=== PATIENT | male | born 1995 | race Caucasian/White ===

== ENCOUNTER 2019-02-09 19:50 | Emergency (ER) | payer OTHER ==
[2019-02-09] MEDS ORDERED: Lidocaine 2% 20 ML MDV INFILT ONE (19:51)
[2019-02-09] MEDS ORDERED: Diphtheria,Pertussis(Acell),Tetanus Vaccine 0.5 ML SDV IM ONE (20:25)
--- NOTE | 2019-02-09 20:26 | EDM.PDOC ---
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 There was no other injury. He reports this occurred approximate 7:30 PM. There is some sore pain in the area that he rates as a 4/10. The pain is somewhat worse with palpation. Better when at rest. The bleeding is been controlled with direct pressure. He has full sensation in his fingers. He has full function in his left hand. There are no other associated signs or symptoms. There are no other modifying factors. 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 ED ROS GENERAL - Review of Systems Review Of Systems: See Below Constitutional: Reports: No Symptoms HEENT: Reports: No Symptoms Respiratory: Reports: No Symptoms Cardiovascular: Reports: No Symptoms GI/Abdominal: Reports: No Symptoms : Reports: No Symptoms Musculoskeletal: Reports: Other ([id number]. Mild soreness in the left volar wrist) Skin: Reports: Other (Laceration of the left volar wrist) Neurological: Reports: No Symptoms Hematologic/Lymphatic: Reports: No Symptoms Immunologic: Reports: Other (Last tetanus immunization was more than 5 years ago. Therefore, he was given a TD Immunization today to bring his tetanus immunization status up-to-date.) ED EXAM, SKIN/RASH Exam: See Below Exam Limited By: No Limitations General Appearance: Alert, WD/WN, Mild Distress Eye Exam: Bilateral Eye: EOMI, Normal Inspection Ears: Normal External Exam Nose: Normal Inspection, Normal Mucosa, No Blood Throat/Mouth: Normal Inspection, Normal Oropharynx, Normal Voice, No Airway Compromise Head: Atraumatic, Normocephalic Neck: Normal Inspection, Supple, Non-Tender, Full Range of Motion Respiratory/Chest: No Respiratory Distress, Lungs Clear, Normal Breath Sounds, No Accessory Muscle Use, Chest Non-Tender Cardiovascular: Normal Peripheral Pulses, Regular Rate, Rhythm, No JVD Peripheral Pulses: 2+: Radial (L), Radial (R) GI/Abdominal: Normal Bowel Sounds, Soft, Non-Tender, No Mass Back Exam: Normal Inspection, Vertebral Tenderness Extremities: Normal Range of Motion, Normal Capillary Refill Neurological: Alert, Oriented, CN II-XII Intact, No Motor/Sensory Deficits Skin: Warm, Dry, No Rash, Wound/Incision (to left volar wrist that is 3 cm in length.) Location, Skin: Upper Extremity, Left (Left volar wrist) Characteristics: Linear (Laceration) ED SKIN PROCEDURES - Laceration/Wound Repair Left Anterior Wrist Lac/Wound length In cm: 3 Appearance: Subcutaneous, Mildly Contaminated Distal NVT: Neuro & Vascular Intact Anesthetic Type: Local Local Anesthesia - Lidocaine (Xylocaine): 2% Plain Local Anesthetic Volume: 3cc (Can and sensation of complications) Saline Irrigation (cc's): 500 Exploration/Debridement/Repair: Wound Explored, No Foreign Material Found Closed with: Sutures Suture Size: 4-0 # of Sutures: 3 Suture Type: Nylon Sterile Dressing Applied: Nurse Tetanus Status Addressed: Yes Complications: No Progress/Comments: Patient tolerated the procedure well with no apparent complications. Course - Vital Signs Last Recorded V/S: Last Vital Signs Temp 36.7 C 02/09/19 20:00 Pulse 71 02/09/19 20:00 Resp 18 02/09/19 20:00 BP 157/75 H 02/09/19 20:00 Pulse Ox 99 02/09/19 20:00 - Orders/Labs/Meds Orders: Active Orders 24 hr Category Date Time Status Vaccines to be Administered [RC] PER UNIT ROUTINE Care 02/09/19 20:26 Active Meds: Medications Discontinued Medications Generic Name Dose Route Start Last Admin Trade Name Patty PRN Reason Stop Dose Admin Diphtheria/Tetanus/Acell Pertussis 0.5 ml 02/09/19 20:25 Adacel IM 02/09/19 20:26 .ONCE ONE Departure - Departure Time of Disposition: 20:40 Disposition: Home, Self-Care 01 Condition: Good (Improved) Clinical Impression: Contusion of left wrist, initial encounter Laceration of left wrist Qualifiers: Encounter type: initial encounter Qualified Code(s): S61.512A - Laceration without foreign body of left wrist, initial encounter - Discharge Information Instructions: Contusion, [id number], Laceration Care, Adult, [id number], Sutured Wound Care, [id number] Forms: ED Department Discharge Additional Instructions: Do not get the wound wet for 3 days. After 3 days, you may get the wound wet but do not immerse the wound in water until the sutures are out. Suture removal in 10 days. Avoid strenuous use with your left hand for the next 2 weeks. Keep the wound covered while you are at work. You may take Tylenol or ibuprofen as needed for pain. Back to the emergency department for marked increase in pain, redness, increased swelling or any other concerning sign or symptom. - My Orders Last 24 Hours: My Active Orders 02/09/19 20:26 Vaccines to be Administered [RC] PER UNIT ROUTINE - Assessment/Plan Last 24 Hours: My Active Orders 02/09/19 20:26 Vaccines to be Administered [RC] PER UNIT ROUTINE
== END 2019-02-09 20:43 | disposition home or self-care (01) ==
LOC: FB.ED 19:50
DX: S61.512A Laceration without foreign body of left wrist, initial encounter (principal); Z23 Encounter for immunization; W22.8XXA Striking against or struck by other objects, initial encounter
CPT/HCPCS: 12002; 90471; 90715; 99282; J2001; 12011